=== PATIENT | male | born 1950 | race Caucasian/White ===

== ENCOUNTER 2021-01-13 13:11 | Inpatient (IN) | payer MEDICARE, OTHER ==
[~2021-01-13 13:11] MED LIST: ASPIRIN 32325 MG/TAB PO; BENICAR HCT 12.1 TAB PO; CEFTIN500 MG PO; FLAX SEED OIL1000 MG PO; FLOMAX 0.40.4 MG/CAP PO; MEVACOR 20M20 MG/TAB PO; OMEGA-3 FISH1200 MG PO
[2021-02-04] VITALS (11 sets, daily range): BP systolic 102–144; BP diastolic 50–69; PULSE 67–90; TEMP 97.4–98
[2021-02-04 06:12] LABS: BASO % 0.6 % (0.0-2.0); EOS # 0.2 (0.0-0.7); GRAN # 3.5 (1.4-6.5); GRAN % 53.6 % (42.2-75.2); HEMATOCRIT 44.3 % (42.0-52.0); HEMOGLOBIN 15.3 g/dl (13.5-18.0); LYMPH # 2.3 (1.2-3.4); LYMPH % 34.3 % (20.0-51.0); MEAN CELL VOLUME 85 fl (80.0-100.0); MEAN CORPUSCULAR HEMOGLOBIN 30 pg (27.0-31.0); MEAN CORPUSCULAR HGB CONC 35 g/dl (33.0-37.0); MEAN PLATELET VOLUME 8.9 fl (7.4-10.4); MONO # 0.5 (0.1-0.6); MONO % 8.2 % (1.7-9.3); PLATELET COUNT 190 K/mm3 (130-400); RED BLOOD COUNT 5.19 M/mm3 (4.20-5.60); REDCELL DISTRIBUTION WIDTH-CV 13.7 % (11.5-14.5)
[2021-02-04 06:23] LABS: ALBUMIN 4.6 gm/dL (3.5-5.0); BILIRUBIN,TOTAL 1.4 mg/dL (0.0-1.0); CALCIUM 9.6 mg/dL (8.4-10.2); CREATININE, serum 0.81 (0.66-1.25); TOTAL PROTEIN 8.9 gm/dL (6.4-8.2)
[2021-02-04] MEDS ORDERED: ASPIRIN 32325 MG/TAB PO (06:27)
[2021-02-04] MEDS ORDERED: FLAXSEED OIL1000 MG PO (06:28)
[2021-02-04] MEDS ORDERED: EPA FISH OIL1 SGL PO (06:28)
[2021-02-04] MEDS ORDERED: ATACAND32 MG PO (06:29)
[2021-02-04] MEDS ORDERED: PRILOSEC 20MG20 MG PO (06:29)
[2021-02-04] MEDS ORDERED: FLOMAX 0.40.4 MG/CAP PO (06:30)
[2021-02-04] MEDS ORDERED: CRANBERRY 100 M1 SGL PO (06:30)
[2021-02-04] MEDS ORDERED: NORVASC 10MG10 MG PO (06:31)
[2021-02-04] MEDS ORDERED: HCTZ 25MG TAB25 MG PO (06:31)
[2021-02-04] MEDS ORDERED: LIPITOR 40MG TA40 MG PO (06:32)
[2021-02-04] MEDS ORDERED: K-DUR20 MEQ PO (06:33)
[2021-02-04] MEDS ORDERED: ONE-A-DAY ESSE1 EACH PO (06:33)
--- NOTE | 2021-02-04 12:05 | NUR ---
PATIENT ADMITED INTO ROOM 350 POST OP ROBOTIC PROSTATE. ABD IS DISTENDED, FIRM AND WITH POSITIVE BOWL SOUNDS. NOTED ABD LAP SITES X5 WITH GLUED CLOSURE. NO C/O N/V. IV FLUIDS INFUSING INTO LEFT WRIST IV. NO C/O PAIN. ORIENTED BUT DROWSY. VSS. HEAD TO TOE ASSESSMENT COMPLETE. ORIENTED TO ROOM. OR STAFF WILL SEND UP. NO OTHER NEEDS. CALL LIGHT IN REACH.
--- NOTE | 2021-02-04 12:40 | NUR ---
NOW AT BEDSIDE. PATIENT AND EDUCATED ABOUT NO STRAWS, NO CARBINATION AND ACTIVITY POST OP. VSS. NO COMPLAINTS. WATER AT BEDSIDE. NO OTHER NEEDS.
--- NOTE | 2021-02-04 16:05 | NUR ---
PATIENT AMBULATING IN HALLS AND TOLERATING ACTIVITY WELL.
--- NOTE | 2021-02-04 22:19 | NUR ---
1954- PT UP SETTING IN CHAIR. DENIES PAIN, SOA, OR DIZZY. PASSING SOME GAS. NO BM TODAY. GOOD APPIETE. CÉSAR EMPTIED AND COMPRESSED. JANINE DD, DARK GARY URINE, NO CLOTS. PM MEDS GIVEN. ASSESSMENT AND VITALS. 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 DOING VERY WELL. NEEDS MET.
[2021-02-05 00:31] VITALS: BP 146/73; PULSE 80; TEMP 98
[2021-02-05 04:59] VITALS: BP 143/71; PULSE 85; TEMP 97.7
--- NOTE | 2021-02-05 06:05 | NUR ---
PT RESTED THROUGH THE NIGHT WITHOUT INCIDENT. DID AMBULATE IN HALLS WELL. URINE CONT TO BE DARK GARY,NO CLOTS NOTED. PRUDENCIO DRAIN MINIMAL DRAINAGE. PT ANTICIPATES TO BE DC TODAY. NEEDS MET.
[2021-02-05 06:17] LABS: HEMATOCRIT 38.6 % (42.0-52.0); HEMOGLOBIN 13.5 g/dl (13.5-18.0)
[2021-02-05 06:33] LABS: CALCIUM 8.8 mg/dL (8.4-10.2); CREATININE, serum 1.12 (0.66-1.25); POTASSIUM 4.1 mmol/L (3.4-5.0)
[2021-02-05 08:00] VITALS: BP 147/61; PULSE 80; TEMP 98
--- NOTE | 2021-02-05 08:30 | NUR ---
CÉSAR drain discontinued at this time. Patient tolearted well. No complaints of pain with removal. Discussed when he can shower. Also discussed how to care for his catheter. No questions verbalized. Gauze 4x4 and tegaderm placed over gauze to CÉSAR site. Explained he can shower with the dressing on. No other changes at this time. Explained Dr García said he could leave after lunch. Patient verbalized understanding. Call light within reach.
--- NOTE | 2021-02-05 09:27 | NUR ---
DINA met with the patient to discuss discharge plan. The patient lives in [place] with his , Keli (ph#[phone]). He reports independence with ADLs and has a cane and walker available at home, if needed. His PCP is Dr. Kalen Hampton and he receives his medications from [facility] in [facility]. He reports no difficulties obtaining his meds. The patient does not have a DPOA-HC, but he was interested in obtaining a form. DINA provided. The patient plans to return home with his upon discharge. No additional needs at this time.
[2021-02-05 11:38] VITALS: BP 143/62; PULSE 67; TEMP 98.1
--- NOTE | 2021-02-05 12:01 | NUR ---
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 No needs right now.
--- NOTE | 2021-02-05 12:30 | NUR ---
Patient is discharging home. Discharge instructions discussed with patient and his . No questions verbalized. INT discontinued. Explained how to care for vidales catheter. Reminded him to clean the catheter in the morning and evening before bed. His is a nurse and was familiar with caring for the vidales. Discussed when follow up appointment is. Copies of discharge instructions sent with patient. All belongings packed up and sent with patient. Patient will leave after eating his lunch. at bedside.
== END 2021-02-05 12:55 | disposition home or self-care (01) | DRG 708 ==
LOC: INPTSU 02-04 05:23 → SURG 02-04 05:23
PROVIDERS: ADMIT Urology
PROC: 07TC4ZZ Resection of Pelvis Lymphatic, Percutaneous Endoscopic Approach (ICD-10-PCS; 2021-02-04)
PROC: 8E0W4CZ Robotic Assisted Procedure of Trunk Region, Percutaneous Endoscopic Approach (ICD-10-PCS; 2021-02-04)
PROC: 0VT04ZZ Resection of Prostate, Percutaneous Endoscopic Approach (ICD-10-PCS; principal; 2021-02-04 07:30)
DX: C61 Malignant neoplasm of prostate (principal); N40.0 Benign prostatic hyperplasia without lower urinary tract symptoms; I25.10 Atherosclerotic heart disease of native coronary artery without angina pectoris; E78.00 Pure hypercholesterolemia, unspecified; I10 Essential (primary) hypertension; M19.90 Unspecified osteoarthritis, unspecified site; Z90.49 Acquired absence of other specified parts of digestive tract; Z79.82 Long term (current) use of aspirin; Z88.0 Allergy status to penicillin
CPT/HCPCS: A4314; A9284; J0690; J1100; J1885; J2250; J2405; J2704; J2795; J3010; J7120